=== PATIENT | female | born 1990 | race Caucasian/White ===

== ENCOUNTER → 2017-11-27 08:43 | Outpatient (CLI) | payer SELFPAY ==
[2017-11-27 11:02] LABS: Glucose GTT-Gestational 1 Hr 206 mg/dL (<190)
[2017-11-27 11:03] LABS: Glucose GTT-Gestation. Fasting 101 mg/dL (<105)
[2017-11-27 11:47] LABS: Glucose GTT-Gestational 2 Hr 178 mg/dL (<165)
[2017-11-27 13:35] LABS: Glucose GTT-Gestational 3 Hr 148 L (<145)
== END ==
PROVIDERS: Family Provider Family Medicine; PCP Family Medicine; Visit Provider Obstetrics & Gynecology
DX: O24.912 Unspecified diabetes mellitus in pregnancy, second trimester (principal); Z3A.00 Weeks of gestation of pregnancy not specified
CPT/HCPCS: 36415; 82951; 82952

== ENCOUNTER 2017-12-07 10:07 | Outpatient (RCR) | payer SELFPAY | END 2017-12-07 23:59 | LOC: DC 10:07 | PROVIDERS: Family Provider Family Medicine; PCP Family Medicine; Visit Provider Family Medicine | DX: O24.419 Gestational diabetes mellitus in pregnancy, unspecified control (principal); Z71.3 Dietary counseling and surveillance | CPT/HCPCS: G0108 ==

== ENCOUNTER → 2018-01-09 19:18 | Outpatient (CLI) | payer SELFPAY ==
[2018-01-09 21:00] LABS: Group B Strep DNA By PCR Negative (Negative); Internal Control PASS; Probe Check PASS; Specimen Processing Control PASS
== END ==
PROVIDERS: Visit Provider Obstetrics & Gynecology
DX: Z36.85 Encounter for antenatal screening for Streptococcus B (principal)
CPT/HCPCS: 87081; 87653

== ENCOUNTER 2018-01-16 19:00 | Inpatient (IN) | payer SELFPAY ==
[2018-01-16 19:40] VITALS: BMI 44.4
[2018-01-16] MEDS: Lactated Ringers 1,000 ML 50 ML IV (20:00)
[2018-01-16 20:20] LABS: Hematocrit 35.7 % (37-47); Hemoglobin 11.6 g/dl (12.0-15.0); Mean Corp Hgb Conc 32.5 g/gl (32-36); Mean Corpuscular Hgb 26.2 pg (27.0-32.0); Mean Corpuscular Volume 80.8 fL (81-99); Mean Platelet Vol. 9.4 fl (6.2-12.0); Platelet Count 302 K/mm3 (150-450); RBC Distribution Width CV 14.1 % (11.6-14.6); RBC Distribution Width SD 40.7 fl (35.1-43.9); Red Blood Count 4.42 M/mm3 (4.2-5.4); White Blood Count 13.9 K/mm3 (4.4-11.0)
[2018-01-16 20:24] LABS: Scan Indicated on CBC? Y/N NO
[2018-01-16] MEDS: miSOPROStol 25 MCG TABLET PO (20:54)
[2018-01-16 21:15] LABS: Bedside Glucose 116 mg/dL (70-110)
[2018-01-16 21:40] LABS: Bedside Glucose 118 mg/dL (70-110)
[2018-01-16 22:35] LABS: Bedside Glucose 106 mg/dL (70-110)
[2018-01-17] MEDS: miSOPROStol 25 MCG TABLET PO ×2 (00:56→05:01)
[2018-01-17 02:11] LABS: Bedside Glucose 120 mg/dL (70-110)
[2018-01-17 03:11] LABS: Bedside Glucose 112 mg/dL (70-110)
[2018-01-17 04:11] LABS: Bedside Glucose 117 mg/dL (70-110)
[2018-01-17 05:10] LABS: Bedside Glucose 114 mg/dL (70-110)
[2018-01-17 06:20] LABS: Bedside Glucose 108 mg/dL (70-110)
--- NOTE | 2018-01-17 07:47 | PCM.PN.BLA ---
Progress Note Induction of labor 37 3/7 wk diabetic.. Cytotec induction. Feeling some UCs but not very painful. Slept some overnight. AVSS sugars overnight 106 - 116. EFM: Category I tracing. 140s avg variability. with accels UCs noted approx q 3 mins CX: per RN just checked 4 cm A/P: 37 3/7 wk diabetic. Induction for oligo. Continue induction. Hold cytotec. Plan AROM and pitocin.
[2018-01-17] MEDS: Acetaminophen 325 MG Tablet PO (08:00)
[2018-01-17] MEDS: Oxytocin 30 units/NS 500 ml 30 UNITS/500 ML IV.SOLN IV (09:09)
[2018-01-17 10:10] LABS: Bedside Glucose 95 mg/dL (70-110)
[2018-01-17 14:21] LABS: Bedside Glucose 77 mg/dL (70-110)
[2018-01-17] MEDS: Nalbuphine 10 MG/ML Ampul IV (16:24)
[2018-01-17] MEDS: Lactated Ringers 1,000 ML 50 ML IV (16:25)
[2018-01-17] MEDS: Amnioinfusion- 0.9% NS 1,000 ML IV.SOLN. 1000 ML INTRA-UTER (18:20)
[2018-01-17] MEDS: Oxytocin 30 units/NS 500 ml 30 UNITS/500 ML IV.SOLN 334 UNITS IV (18:42)
[2018-01-17 18:51] LABS: Bedside Glucose 88 mg/dL (70-110)
--- NOTE | 2018-01-17 19:00 | PCM.OB.VAG ---
Vaginal Delivery Maternal Presentation: Medically Indicated Induction Method of Induction: Pitocin, Amniotomy, Cytotec Medical Reason for Induction: - - Severe Oligohydramnios Amniotic Membrane Rupture Type: Artificial Amniotic Fluid Description: Clear Final SAMANTHA: 02/05/18 Final SAMANTHA Source: US <20 weeks Gestational age: 37 Weeks and 2 Days Date of Procedure: 01/17/18 Pre-Operative Diagnosis: IUP, Severe Oligohydramnios, Gestational Diabetes Post-Operative Diagnosis: IUP, Severe Oligohydramnios, Gestational Diabetes Surgery/ Procedure Performed: Spontaneous Vaginal Delivery Type of Anesthesia: None Description of Procedure: Spontaneous vaginal delivery of a viable female infant with Apgars of 8/9 in occiput anterior presentation with clear amniotic fluid and normal three-vessel placenta. True knot in cord. Precipitously delivered after advancing quickly from 4 cm to complete. I entered the room moments after delivery. No episiotomy or laceration. Sponge counts okay. Delivery physician of record: Jerry Renee MD. Presentation: Vertex Placental Delivery Description: Spontaneous Placenta Disposition: [facility] Cord Vessel Description: 3 Vessels Cord Gases drawn per routine: ABG Cord Entanglement: None, True Knot(s) - x 1 Estimated Blood Loss: 250 cc Infant A gender: Female (1 minute): 8 (5 minute): 9 Episiotomy Description: None Laceration: None Medications given after delivery: IV Pitocin Complications: None
--- NOTE | 2018-01-17 19:08 | DCINST_ITS ---
Discharge Diet: No Restrictions Discharge Activity: May Shower, May Take a Tub Bath May resume sexual activity in: 4-6 weeks Additional Activity Instructions:: Nothing in the vagina for 4-6 weeks. You may return to work/school in 6 weeks. Call your doctor if you observe: Fever of 101 or Higher, Inability to urinate, Inability to have a bowel movement, Using more than one pad per hour Additional Instructions: If you experience any of the following, contact your healthcare provider. * Bleeding that soaks a pad every hour for 2 hours * Unrelieved incision or abdominal pain * Swelling, redness, discharge or bleeding from your incision or episiotomy site * Your incision begins to separate * Problems urinating (including inability to urinate or burning while urinating) . * Visual changes * Severe headache * Flu-like symptoms * Pain or redness in one of both of your breasts * Pain, warmth, tenderness or swelling in your legs, especially the calf area * Frequent nausea and vomiting * Symptoms of depression or anxiety If you experience any of the following, call 911 or go to the nearest Emergency Room. * Chest pain * Problems breathing * Seizure activity * Partial or complete paralysis of a body part, slurred speech, weakness or drooping of the face, or a sudden inability to walk or hold your balance Allergies/Adverse Reactions: Allergies No Known Allergies Allergy (Verified 01/16/18 19:38) Medications to take at Discharge Glyburide 1.25 mg PO DAILY 01/16/18 Please Follow Up With: Jerry Renee MD - [phone] When: Call to make an appointment with your doctor in 6 weeks. Test Results: Test results from this visit will be discussed in further detail at your follow- up appointment, if applicable.
--- NOTE | 2018-01-17 19:08 | PCM.DCVAG ---
Discharge Diet: No Restrictions Discharge Activity: May Shower, May Take a Tub Bath May resume sexual activity in: 4-6 weeks Additional Activity Instructions:: Nothing in the vagina for 4-6 weeks. You may return to work/school in 6 weeks. Call your doctor if you observe: Fever of 101 or Higher, Inability to urinate, Inability to have a bowel movement, Using more than one pad per hour Additional Instructions: If you experience any of the following, contact your healthcare provider. Bleeding that soaks a pad every hour for 2 hours Unrelieved incision or abdominal pain Swelling, redness, discharge or bleeding from your incision or episiotomy site Your incision begins to separate Problems urinating (including inability to urinate or burning while urinating). Visual changes Severe headache Flu-like symptoms Pain or redness in one of both of your breasts Pain, warmth, tenderness or swelling in your legs, especially the calf area Frequent nausea and vomiting Symptoms of depression or anxiety If you experience any of the following, call 911 or go to the nearest Emergency Room. Chest pain Problems breathing Seizure activity Partial or complete paralysis of a body part, slurred speech, weakness or drooping of the face, or a sudden inability to walk or hold your balance Allergies/Adverse Reactions: Allergies No Known Allergies Allergy (Verified 01/16/18 19:38) Medications to take at Discharge Glyburide 1.25 mg PO DAILY 01/16/18 Please Follow Up With: Jerry Renee MD - [phone] When: Call to make an appointment with your doctor in 6 weeks. Test Results: Test results from this visit will be discussed in further detail at your follow-up appointment, if applicable.
[2018-01-17] MEDS: Oxytocin 30 units/NS 500 ml 30 UNITS/500 ML IV.SOLN 167 UNITS IV (19:12)
[2018-01-17 19:26] LABS: Bedside Glucose 107 mg/dL (70-110)
[2018-01-17] MEDS: 0.9% Saline Lock 10 ML Syringe IV (20:12)
[2018-01-17 21:00] VITALS: BP 134/74; PULSE 95; RESP 18; TEMP 36.2
[2018-01-17 23:45] VITALS: BP 96/55; PULSE 80; RESP 18; TEMP 36.6
[2018-01-18 04:20] VITALS: BP 111/72; PULSE 83; RESP 18; TEMP 36.1
[2018-01-18 06:31] LABS: Bedside Glucose 95 mg/dL (70-110)
[2018-01-18 08:12] VITALS: BP 111/64; PULSE 99; RESP 18; TEMP 36.3; O2SAT 96
--- NOTE | 2018-01-18 09:29 | PCM.PN.OB ---
Subjective: Pt without complaints. Decided to bottle feed. Wants to go home if baby able to go. - Physical Exam Vital Signs Temp Pulse Resp BP Pulse Ox 97.3 F L 99 18 111/64 96 01/18/18 08:12 01/18/18 08:12 01/18/18 08:12 01/18/18 08:12 01/18/18 08:12 Oxygen Delivery Method Room Air Weight: 242 lb 9.6 oz Body Mass Index (BMI) 44.4 Intake and Output for Last 24 Hours 01/16/18 01/17/18 01/18/18 23:59 23:59 23:59 Intake Total 600 / 600 2647 / 2647 Output Total 500 / 500 3200 / 3200 Balance 100 / 100 -553 / -553 POC Glucose 01/18/18 01/17/18 01/17/18 05:57 19:18 18:22 POC Glucose 95 107 88 01/17/18 01/17/18 14:10 09:59 POC Glucose 77 95 Medical Necessity - Tobacco Use Smoking Status: Never smoker Assessment/Plan Doing well PPD 1. Will release to home if baby able to go. Homegoing instructions given.
[2018-01-18 12:10] VITALS: BP 115/69; PULSE 99; RESP 18; TEMP 36.2; O2SAT 99
--- NOTE | 2018-01-18 14:19 | CASEMGMT ---
ocial Work Assessment Labor and Delivery Unit Date of Referral: 01/18/2018 Time of Referral: 44 Referred By: Dr. Silva Date of Intervention: 01/18/2018 Time of Intervention: 1130 Reason for Referral: resources; depression education History obtained from: Medical record and mother of baby (MOB) Lili Coffman Household composition: MOB, father of baby (FOB) and their older children. Plan to take infant to this home as well as after discharge. Patient's parent/guardian status: MOB and FOB Rashid Coffman are now for 10 years. Have 4 children: Raj, born July 2009; Alonso born October 2010; Johnna, born April 2015; and Vero, born January 17, 2018. Medical History: BEATRIZ is to 4 after delivering Vero. MOB reports history of multiple losses, all first trimester. MOB with care starting at 15 weeks gestation. born at 37 weeks, weighing 7 pounds 13 ounces, Apgars 8 and 9 at 1 and 5 minutes of life. Educational Status: MOB completed through the 8th grade, as did FOB. MOB reports grew up [place], and 8th grade is the typical last grade of completion. MOB denies any issues with reading, writing, or learning comprehension. Financial Status: MOB stays at home to care for the children at this time. FOB is self-employed as a [employer]. MOB reports financial status is adequate. Supplies: MOB reports to have needed baby supplies to get started, such as car seat, crib, clothing, diapers, and wipes. MOB reports plan now to bottle feed, and will go to the store at discharge to get bottles and formula. Childcare/Caregiver(s): MOB Transportation: No reported issues, MOB drives and has access to a vehicle. Programs/Agencies Involved: No agency involvement, and no reported interest in Medicaid. MOB does not have insurance, and not interested in applying for Medicaid to supplement healthcare needs. MOB reports to be over income for [employer]. Children Services/Legal Issues: No reported history of any children services or legal issues. Behavioral Health Issues: MOB denies any history of depression, anxiety, or other emotional health issues including depression or anxiety. MOB reports has had problems with hormones in the past, but denies depression or anxiety. No reports or indication of any suicidal thoughts, plans, intent, or past attempt. MOB reports her own mother may have had some history of depression. MOB denies any history of substance use or abuse. No tobacco use either. Family/Social Stressors: No reported issues, concerns, or stressors reported. MOB does have history of multiple early loss. MOB does report that Vero was a happy surprise, as MOB had 2 miscarriages prior to conceiving Vero, and that MOB and FOB were both unsure if they could go through another loss again. Support Systems: MOB reports FOB is helpful and supportive when at home, denies any form of abuse in this relationship. MOB reports to have her sister and mother locally to help as well. MOB reports at home going, MOBs mother will continue to keep the older children for a few more days, giving MOB and FOB a few days to transition home with baby. ASSESSMENT: MOB polite and cooperative with social work visit. MOB affect constricted at times, but other times, when MOB looking at baby or talking about baby MOB would smile and exhibit a bright affect. MOB held normal eye contact. Mood normal and congruent to content discussed. MOB reports to have loving feelings for baby and to be happy. MOB denies depression. Denies anxiety. Educated MOB to depression and anxiety, risk factors, and importance of seeking out help and support should symptoms arise. MOB reports to be aware of safe sleeping, and able to give appropriate responses regarding shaken baby prevention. MOB reports to have adequate help and to have supplies at home for baby. MOB accepting of resources information offered, as well as resource packet for [facility] where MOB lives. PLAN: MOB and baby to home at time of discharge. Resources provided. No other services requested or indicated. -BAM Epstein, ELEMENTARY SECRETARY
[2018-01-18] MEDS: Ibuprofen 600 MG Tablet PO (14:33)
[2018-01-18] MEDS: oxyCODONE 5 MG Tablet PO (16:34)
[2018-01-18 16:40] VITALS: BP 118/73; PULSE 92; RESP 18; TEMP 36.3; O2SAT 94
[2018-01-18 19:36] VITALS: BP 120/63; PULSE 86; RESP 18; TEMP 36.6; O2SAT 96
== END 2018-01-18 20:45 | disposition home or self-care (01) | DRG 775 ==
PROVIDERS: Obstetrics & Gynecology; Admitting Provider Obstetrics & Gynecology; Visit Provider Obstetrics & Gynecology
DX: O41.03X0 Oligohydramnios, third trimester, not applicable or unspecified (principal); O24.425 Gestational diabetes mellitus in childbirth, controlled by oral hypoglycemic drugs; O62.3 Precipitate labor; O26.23 Pregnancy care for patient with recurrent pregnancy loss, third trimester; O69.2XX0 Labor and delivery complicated by other cord entanglement, with compression, not applicable or unspecified; Z3A.37 37 weeks gestation of pregnancy; Z37.0 Single live birth
CPT/HCPCS: 59025; 59050; 82962; 85027; 86850; 86900; 99218; J7030; J7120; A4216; G0378

== ENCOUNTER → 2020-02-20 13:36 | Outpatient (CLI) | payer SELFPAY ==
[2020-02-22 03:06] LABS: Chlamydia By Nucleic Acid AMP Negative (Negative)
[2020-02-22 08:22] LABS: Gonococcus By Nucleic Acid AMP Negative (Negative)
[2020-02-24 15:29] LABS: HPV Reflexed? NOT INDICATED
== END ==
PROVIDERS: Visit Provider Obstetrics & Gynecology
DX: Z12.4 Encounter for screening for malignant neoplasm of cervix (principal); Z11.3 Encounter for screening for infections with a predominantly sexual mode of transmission
CPT/HCPCS: 87491; 87591; 88175; G0145

== ENCOUNTER → 2020-02-21 15:17 | Outpatient (CLI) | payer SELFPAY ==
[2020-02-21 17:22] LABS: Absolute Lymphocyte Count 3.19 X10^3/uL (0.83-4.51); Basophil# 0.07 X10^3/uL; Basophil% 0.5 % (0-1); Eosinophil# 0.18 X10^3/uL; Eosinophils% 1.2 % (0-5); Hematocrit 40.6 % (37-47); Hemoglobin 13.4 g/dL (12.0-15.0); Lymphocyte # 3.19 X10^3/ul (4.0); Lymphocyte % 20.9 % (19-41); Mean Corpuscular Hgb 28.6 pg (27.0-32.0); Mean Corpuscular Volume 86.6 fL (81-99); Mean Platelet Vol. 9.2 fl (6.2-12.0); Monocyte# 0.79 X10^3/uL; Monocyte% 5.2 % (0-10); NRBC Flagged by Analyzer 0 % (0-5); Neutrophil # 10.98 X10^3/uL (2.7-7.7); Neutrophil % 71.7 % (47-70); Platelet Count 359 K/mm3 (150-450); RBC Distribution Width CV 13.2 % (11.6-14.6); RBC Distribution Width SD 41.1 fl (35.1-43.9); Red Blood Count 4.69 M/mm3 (4.2-5.4); White Blood Count 15.3 K/mm3 (4.4-11.0)
[2020-02-21 17:40] LABS: Color, Urine Yellow (Yellow); Glucose, Dipstick Normal (Normal); Ketone-Dipstick Negative (Negative); Leukocyte Esterase-Dipstick 500 /ul (Negative); Nitrite-Dipstick Negative (Negative); Occult Blood-Urine 250 /ul (Negative); Protein-Dipstick 15 mg/dl (Negative); Specific Gravity, Urine 1.025 (1.002-1.030); Urine Bilirubin Dipstick Negative (Negative); Urine Clarity Sl. Cloudy (Clear); Urine Urobilinogen Normal (Normal)
[2020-02-22 11:01] LABS: HIV - WCH Non-Reactive (Nonreactive); Hepatitis B Surface Antigen Non-Reactive (Nonreactive); Hepatitis C Antibody Non-Reactive (Nonreactive); Rubella IgG 110.8 IU/mL
[2020-02-27 02:15] LABS: Prenatal RPR NONREACTIVE (NONREACTIVE)
== END ==
PROVIDERS: Visit Provider Obstetrics & Gynecology
DX: Z34.81 Encounter for supervision of other normal pregnancy, first trimester (principal)
CPT/HCPCS: 36415; 81002; 85025; 86703; 86762; 86803; 87340

== ENCOUNTER → 2020-03-19 11:57 | Outpatient (CLI) | payer SELFPAY ==
[2020-03-19 13:05] LABS: Glucose Challenge Gest 1H 50g 125 mg/dL (70-140)
== END ==
PROVIDERS: Visit Provider Obstetrics & Gynecology
DX: Z34.82 Encounter for supervision of other normal pregnancy, second trimester (principal)
CPT/HCPCS: 36415; 82950

== ENCOUNTER → 2020-06-10 16:00 | Outpatient (CLI) | payer SELFPAY ==
[2020-06-10 17:23] LABS: Hematocrit 33.8 % (37-47); Hemoglobin 10.5 g/dL (12.0-15.0); Mean Corp Hgb Conc 31.1 g/dL (32-36); Mean Corpuscular Hgb 26.6 pg (27.0-32.0); Mean Corpuscular Volume 85.6 fL (81-99); Mean Platelet Vol. 9.4 fl (6.2-12.0); Platelet Count 334 K/mm3 (150-450); RBC Distribution Width CV 12.6 % (11.6-14.6); RBC Distribution Width SD 38.7 fl (35.1-43.9); Red Blood Count 3.95 M/mm3 (4.2-5.4); White Blood Count 11.3 K/mm3 (4.4-11.0)
[2020-06-10 17:28] LABS: Glucose Challenge Gest 1H 50g 171 mg/dL (70-140)
== END ==
PROVIDERS: Visit Provider Obstetrics & Gynecology
DX: Z34.83 Encounter for supervision of other normal pregnancy, third trimester (principal)
CPT/HCPCS: 36415; 82950; 85027

== ENCOUNTER 2020-07-22 09:33 | Outpatient (CLI) | payer SELFPAY ==
[2020-07-22 09:42] VITALS: BP 137/74; PULSE 106; TEMP 36.3
[2020-07-22 10:30] VITALS: BMI 45.8
--- NOTE | 2020-07-30 10:06 | OB.TRI.NOTE ---
History of Present Illness Date of Service: 07/22/20 Was patient seen by the physician?: No Reason For Visit: NON-STRESS TEST Date of Service: 07/22/20 Final SAMANTHA: 09/18/20 Final SAMANTHA Source: US <20 weeks Gestational age: 31 Weeks and 5 Days History of Present Illness: 31+ week intrauterine presents for routine nonstress test for twins. Allergies No Known Allergies Allergy (Verified 07/26/20 16:37) Physical Exam Vitals: Vital Signs Temp Pulse BP 97.3 F L 106 H 137/74 H 07/22/20 09:42 07/22/20 09:42 07/22/20 09:42 NST - FHR Rate Baby A NST Reactive:: Yes FHR Category:: Category I - FHR Rate Baby B NST Reactive:: Yes FHR Category:: Category I Impression/Plan 31+ week intrauterine twin gestation for routine nonstress test. Reactive x2. Continuing present care.
== END 2020-07-22 10:40 | disposition home or self-care (01) ==
LOC: WPOUT 09:34 → WP 09:34
PROVIDERS: Referring Provider Obstetrics & Gynecology; Visit Provider Obstetrics & Gynecology
DX: O30.003 Twin pregnancy, unspecified number of placenta and unspecified number of amniotic sacs, third trimester (principal); Z3A.31 31 weeks gestation of pregnancy
CPT/HCPCS: 59025

== ENCOUNTER 2020-07-26 16:10 | Outpatient (CLI) | payer SELFPAY ==
[2020-07-26 16:15] VITALS: BP 142/77; PULSE 108
[2020-07-26 16:19] VITALS: TEMP 36.5
[2020-07-26 16:37] VITALS: BMI 45.5
[2020-07-26 17:06] VITALS: BP 139/70; PULSE 97
--- NOTE | 2020-07-27 18:16 | PN_ITS ---
Progress Note NST [place] di twins at 32/2w, GDMA2 presenting for NST. NST REACTIVE. Discharged home for follow up on Monday in office.
== END 2020-07-26 17:20 | disposition home or self-care (01) ==
LOC: WPOUT 16:14 → WP 16:15
PROVIDERS: Visit Provider Student in an Organized Health Care Education/Training Program
DX: O30.033 Twin pregnancy, monochorionic/diamniotic, third trimester (principal); O24.419 Gestational diabetes mellitus in pregnancy, unspecified control; Z3A.32 32 weeks gestation of pregnancy
CPT/HCPCS: 59025

== ENCOUNTER 2020-08-02 14:45 | Outpatient (CLI) | payer SELFPAY ==
[2020-08-02 14:58] VITALS: BP 134/70; PULSE 88; TEMP 36.8; O2SAT 97
[2020-08-02 14:59] VITALS: BP 134/70; PULSE 88
--- NOTE | 2020-08-06 07:19 | OB.TRI.NOTE ---
History of Present Illness Date of Service: 08/02/20 Was patient seen by the physician?: No Reason For Visit: NST TWINS Final SAMANTHA: 09/18/20 Final SAMANTHA Source: US <20 weeks Gestational age: 33 Weeks and 2 Days History of Present Illness: 30yo at 33 2/7 wga with MCDA twin gestation presenting for scheduled NST. Allergies No Known Allergies Allergy (Verified 08/02/20 15:09) Physical Exam Vitals: Vital Signs Temp Pulse BP Pulse Ox 98.2 F 88 134/70 H 97 08/02/20 14:58 08/02/20 14:59 08/02/20 14:59 08/02/20 14:58 NST - FHR Rate Baby A Baseline: 125 Variability:: Moderate Accelerations:: 15 x 15 Decelerations:: None NST Reactive:: Yes FHR Category:: Category I Uterine Activity:: 0/10 - FHR Rate Baby B Baseline: 130 Variability:: Moderate Accelerations:: 15 x 15 Decelerations:: None NST Reactive:: Yes FHR Category:: Category I Uterine Activity:: 0/10
== END 2020-08-02 15:40 | disposition home or self-care (01) ==
LOC: WPOUT 14:49 → OBT 14:50
PROVIDERS: Referring Provider Obstetrics & Gynecology; Visit Provider Obstetrics & Gynecology
DX: O30.033 Twin pregnancy, monochorionic/diamniotic, third trimester (principal); Z3A.33 33 weeks gestation of pregnancy
CPT/HCPCS: 59025; 59050; 99218; G0378

== ENCOUNTER 2020-08-09 17:05 | Outpatient (CLI) | payer SELFPAY ==
[2020-08-09 17:13] VITALS: BP 143/65; PULSE 98; TEMP 36.6; O2SAT 99
--- NOTE | 2020-08-14 17:01 | PCM.PN.BLA ---
Progress Note Twins for NST, inability to continuously trace babies. +Normal movement. Monitoring reassuring, f/u Thursday 08/10 for BPP in office. Discussed personally with patient.
== END 2020-08-09 18:05 | disposition home or self-care (01) ==
LOC: WPOUT 17:21 → WP 17:21
PROVIDERS: Referring Provider Student in an Organized Health Care Education/Training Program; Visit Provider Student in an Organized Health Care Education/Training Program
DX: O30.009 Twin pregnancy, unspecified number of placenta and unspecified number of amniotic sacs, unspecified trimester (principal); Z3A.00 Weeks of gestation of pregnancy not specified
CPT/HCPCS: 59025; 59050; 99218; G0378

== ENCOUNTER → 2020-08-13 17:06 | Outpatient (CLI) | payer SELFPAY ==
[2020-07-26 16:37] VITALS: BMI 45.5
[2020-08-13 17:18] LABS: Mucous, Urine 0 SEEN /hpf (<or=2+); Red Blood Cells-Urine 0 SEEN /hpf (0-5)
[2020-08-13 17:35] LABS: Absolute Lymphocyte Count 2.12 X10^3/uL (0.83-4.51); Absolute Neutrophil Count 6.6 X10^3/uL (2.0-7.7); Basophil# 0.03 X10^3/uL; Basophil% 0.3 % (0-1); Eosinophil# 0.39 X10^3/uL; Hematocrit 30.4 % (37-47); Lymphocyte # 2.12 X10^3/ul (4.0); Lymphocyte % 21.7 % (19-41); Mean Corp Hgb Conc 29.6 g/dL (32-36); Mean Corpuscular Volume 74.3 fL (81-99); Mean Platelet Vol. 9.5 fl (6.2-12.0); Monocyte% 6.1 % (0-10); NRBC Flagged by Analyzer 0.7 % (0-5); Neutrophil # 6.56 X10^3/uL (2.7-7.7); Platelet Count 297 K/mm3 (150-450); RBC Distribution Width CV 15.6 % (11.6-14.6); RBC Distribution Width SD 42.1 fl (35.1-43.9); Red Blood Count 4.09 M/mm3 (4.2-5.4); White Blood Count 9.8 K/mm3 (4.4-11.0)
[2020-08-13 17:39] LABS: Color, Urine Yellow (Yellow); Glucose, Dipstick Normal (Normal); Ketone-Dipstick Negative (Negative); Leukocyte Esterase-Dipstick 100 /ul (Negative); Nitrite-Dipstick Negative (Negative); Occult Blood-Urine 25 /ul (Negative); Protein-Dipstick 30 mg/dl (Negative); Specific Gravity, Urine 1.005 (1.002-1.030); Urine Bilirubin Dipstick Negative (Negative); Urine Clarity Clear (Clear); Urine Urobilinogen Normal (Normal)
[2020-08-13 17:44] LABS: Squamous Epithelial Cells - UA 0-5 SEEN /hpf (5-10); White Blood Cells 0-5 SEEN /hpf (0-5)
[2020-08-13 17:45] LABS: Bacteria RARE /hpf (None Seen)
[2020-08-13 17:48] LABS: Protein, Urine (Random) 58.6 mg/dL (<11.9); Protein:Creat Ratio 1149 mg/g CRE (0-200)
[2020-08-13 18:30] LABS: ALB/GLOB Ratio 0.5 RATIO (0.9-2.4); AST(SGOT) 23 U/L (15-37); Alanine Aminotransfer ALT/SGPT 34 U/L (13-56); Albumin, Serum 2.3 g/dL (3.2-5.0); Alkaline Phosphatase 161 U/L (45-117); Anion Gap 7 (5-15); BUN 7 mg/dL (7-18); BUN/Creat Ratio 11.7 RATIO (10-20); Calcium,Total 9.3 mg/dL (8.5-10.1); Chloride 106 mmol/L (98-107); EST Glomerular Filtration Rate 124 mL/min (>60); Est Glom Filt Rate - Afr Amer 150 mL/min (>60); Globulin 4.3 g/dL (2.2-4.2); Glucose 69 mg/dL (74-106); LDH 204 U/L (84-246); Protein, Total 6.6 g/dL (6.4-8.2); Sodium Level 138 mmol/L (136-145)
== END ==
PROVIDERS: Visit Provider Obstetrics & Gynecology
DX: R51.9 Headache, unspecified (principal)
CPT/HCPCS: 36415; 80053; 81001; 82570; 83615; 84156; 85025

== ENCOUNTER 2020-08-14 16:15 | Outpatient (CLI) | payer SELFPAY ==
[2020-08-14 16:35] VITALS: BMI 46.4
[2020-08-14 16:39] VITALS: BP 132/62; PULSE 98; TEMP 36.7; O2SAT 99
[2020-08-14 16:40] VITALS: BP 132/62; PULSE 97; TEMP 36.7
[2020-08-14] MEDS: Betamethasone/Betamethasone 30 MG/5 ML Vial 12 MG IM (17:00)
--- NOTE | 2020-08-15 09:32 | OB.TRI.NOTE ---
History of Present Illness Date of Service: 08/14/20 Was patient seen by the physician?: No Reason For Visit: CELESTONE INJECTION Date of Service: 08/14/20 Final SAMANTHA: 09/18/20 Final SAMANTHA Source: LMP Gestational age: 35 Weeks and 1 Days History of Present Illness: 30-year-old with mono di twins here for first dose of Celestone Allergies No Known Allergies Allergy (Verified 08/14/20 16:36) Physical Exam Vitals: Vital Signs Temp Pulse BP Pulse Ox 98.1 F 97 132/62 H 99 08/14/20 16:40 08/14/20 16:40 08/14/20 16:40 08/14/20 16:39 Impression/Plan 30-year-old with mono di twins at 35 weeks for first dose of Celestone
[2020-08-15 17:37] LABS: 24HR. UA Prot. Total Volume 1300 mL
[2020-08-15 17:38] LABS: 24 Hour Urine Protein 1738.1 mg/24HR (<150 MG/24HR); Urine Protein (24 Hour) 133.7 mg/dL (<11.9)
== END 2020-08-14 17:05 | disposition home or self-care (01) ==
LOC: WPOUT 16:19 → WP 16:19
PROVIDERS: Referring Provider Obstetrics & Gynecology; Visit Provider Obstetrics & Gynecology
DX: O30.033 Twin pregnancy, monochorionic/diamniotic, third trimester (principal); Z3A.35 35 weeks gestation of pregnancy
CPT/HCPCS: 84156; 96372; 99218; G0378; J0702

== ENCOUNTER 2020-08-15 16:47 | Outpatient (CLI) | payer SELFPAY ==
[2020-08-14 16:35] VITALS: BMI 46.4
[2020-08-15 17:34] VITALS: BMI 46.7
[2020-08-15 17:40] VITALS: BP 136/83; PULSE 97; TEMP 36.7; O2SAT 96
[2020-08-15] MEDS: Betamethasone/Betamethasone 30 MG/5 ML Vial 12 MG IM (17:52)
[2020-08-15 18:05] VITALS: RESP 18
--- NOTE | 2020-08-16 10:55 | OB.TRI.NOTE ---
History of Present Illness Date of Service: 08/15/20 Was patient seen by the physician?: No Reason For Visit: CELESTONE INJECTIONS Date of Service: 08/15/20 Final SMAANTHA: 09/18/20 Final SAMANTHA Source: LMP Gestational age: 35 Weeks and 2 Days History of Present Illness: 30-year-old at 35 weeks and 1 day with mono ditwins here for second dose of Celestone and 24-hour urine collection Allergies No Known Allergies Allergy (Verified 08/15/20 17:31) Physical Exam Vitals: Vital Signs Temp Pulse Resp BP Pulse Ox 98.1 F 97 18 136/83 H 96 08/15/20 17:40 08/15/20 17:40 08/15/20 18:05 08/15/20 17:40 08/15/20 17:40 Impression/Plan 30-year-old with mono di twins at 35 weeks and 1 day here for second dose of Celestone and 24-hour urine collection. Reviewed 24-hour urine collection, to follow-up in office on Monday
== END 2020-08-15 18:05 | disposition home or self-care (01) ==
LOC: WPOUT 16:49 → OBT 16:50
PROVIDERS: Visit Provider Obstetrics & Gynecology
DX: O30.033 Twin pregnancy, monochorionic/diamniotic, third trimester (principal); Z3A.35 35 weeks gestation of pregnancy
CPT/HCPCS: 96372; 99218; G0378; J0702

== ENCOUNTER 2020-08-18 05:00 | Inpatient (IN) | payer SELFPAY ==
--- NOTE | 2020-08-17 13:53 | PCM.HP.BLA ---
History and Physical Date of Admission: 08/18/20 ACOG ANTEPARTUM RECORD - HISTORY AND PHYSICAL (08/17/2020) Name: LILI BOOTH History of this : This is a 30 year old [id number] with twin gestation who presents at 35 wks + 3 days gestation. PNC has been remarkable for twin gestation with mono-DI placentation. She also has gestational DM controlled with low dose glyburide. Finally, she has recently had occasional elevated BPs and recent 24 hour urine showed proteinuria of about 1700 mg/24 hours. She also has gestational HTN controlled until recently with Labetalol. She was given 2 doses of celestone late last week in anticipation of delivery this week. Babies are Breech-Breech so delivery planned by . OB Physician: Jerry Renee MD Harper's Physician: PED GREENHOUSE FLORIST ...................................................................... : 1990 Age: 30 Address: [address] [place] [address] Phone: [phone]) [phone] Insurance Carrier: Emergency Contact: LUTHER BOOTH- [phone] ...................................................................... Final SAMANTHA: 09/18/20 By Ultrasound: PARITY:G*[id number] (G-Total Pregnancies P-Fullterm,Premature,Induced AB,Spont AB, Ectopics, Multiple,Living) SAMANTHA CONFIRMATION: By LMP: 12/13/19 Final SAMANTHA: 09/18/20 OB PROBLEM LIST: 7 early 1st trimester SAB's APLS ordred by MFM AFP/CF testing declined NT wnl w/ MFM. Declined further genetic screening Elevated 1 hour PG --declines 3 hour GTT. Following blood sugars--Glyburide started 28 weeks for elevated FBSs gHTN - Labetalol History of GDMA Lives 1 hr from [place] MonoDi Twins --MFM recos q 2 week BRITTANY starting 16 weeks, growth q 4 weeks, anatomy survey 18-20 weeks, cardiac echo 20-22 weeks, NST 2x/week starting 32 weeks, delivery about 37 weeks gestation Prefers not to have an epidural ALLERGIES: No Known Allergies No Known Drug Allergies MEDICATIONS: aspirin 81 mg tablet,delayed release 1 PO QD glyburide 1.25 mg tablet Two pills by mouth once a day with dinner labetalol 100 mg tablet One pill by mouth twice a day 28 mg iron-800 mcg tablet One pill by mouth once a day Zofran 8 mg tablet One pill by mouth four times a day prn nausea SOCIAL HISTORY: Smoking - Never Alcohol Use - None Diet - no special diet Lifestyle - moderate stress lifestyle and Exercise - active work Employer - [employer] Job Description - Illicit Drug Use - None Sexual Activity - Residence - lives with Place of - [place], [place] Spouse-Sig Other Name - Luther Booth Spouse-Sig Other Occupation - Self Employed [employer] Spouse-Sig Other Phone No - [phone] Children Name(s) - Alonso Anthony, Johnna, Vero(18) PRIOR DELIVERY HISTORY DEL DATE GEST LAB WT LB WT OZ TYPE ANES LABOR TX Oct 17 6 0 0 0 Sab None No Feb 14 6 0 0 0 Sab None No Feb 19 7 0 0 0 Sab None No Jul 18 6 0 0 0 Sab None No Apr 08 6 0 0 0 Sab None No Mar 26 6 0 0 0 Sab None No Oct 11 40 12 9 14 Vag Epidural No Jul 19 40 12 8 0 Vacuu Local No Jan 24 37 12 7 12 Vag None No Apr 23 40 12 10 4 Vag None No ANTEPARTUM FLOW CHART VISIT GE RTC FU F F AR U U DATE WK MD WKS HT PN HR M SS BP ED WT AR GL D EF ST __ ____ ___ __ __ ___ __ __ __ ___ __ __ __ ___ __ 04 Aug JM 2 34 BB on + 138/92 sl 256 1+ - 01 Aug JM 2 34 BB on ++ 130/82 1+ 253 tr - Jul SHM 1 41 BB ++ ++ 118/76 sl 249 1+ - Jul JMW 1 41 BB ++ + 148/90 sl 248 tr ne Aug 09 JMW 1 43 BB ++ ++ 144/88 sl 250 tr - Aug 08 JMW 1 35 BT ++ ++ 110/84 sl 250 tr - Jul 07 JM 2 29 - on ++ 122/80 sl 248 tr - Jul 06 JMW 2 34 ++ ++ 128/86 0 246 - - Jul 05 JMW 1 30 TT ++ ++ 124/82 0 245 tr - 02 Jul 03 JMW 2 31 VT ++ ++ 138/82 0 249 - 1+ Jun 01 SHM 2 26 BT ++ ++ 126/72 0 245 - - Apr 26 JMW 5 22 BC ++ ++ 120/80 0 239 tr - 10 Mar 22 JM 4 13 - on US 120/70 0 233 tr tr Feb 16 JM 4 10 - + US 124/80 0 233 - - ANTEPARTUM NOTE(S): Aug 13 2020: Decreased FM Aug 10 2020: u/s and f/u with JM Aug 05 2020: Feeling Well, Good FM x 2 Jul 29 2020: BPP /8 x 2; inc labetalol to 200 BID; NST Monday; BS OK Jul 22 2020: Blood Sugars Copied, Good FM x 2,NST at [facility] reactive Jul 16 2020: BPP 8/8; BSs better Jul 07 2020: see note Jul 01 2020: inc glyburide to 2.5 daily, u/s ok Jun 25 2020: US, FBS high, start glyburide Jun 10 2020: CBC, OGCT Today, Good FM x 2,Feeling Well May 27 2020: Apr 22 2020: feeling well., seeing MFM for AFIs Mar 19 2020: feeling well. Early glucola done today. AM Feb 21 2020: COMPREHENSIVE ANTEPARTUM NOTE(S): Aug 13 2020: Lili is here for a PNV. Decreased FM since Monday, has only felt babies approximately 3 times today. Sl edema in ankles. Elevated BP, 1+ protein in urine. Reports headaches, denies vision changes and lightheadedness. Some ctx's present. Informed of GBS and LARC at 36 wk appt. MK Aug 13 2020: 34wk, MonoDi twins. [place] decreased movement the past few days BPP today 02/14. Discussed movements. GDMA based on failed 1hr GTT did not do 3hr, prophylactically started on Glyburide 5mg, OTBS Fasting 80-90 2hr GTT 110. cHTN on Lebatelol 200mg BID, BP's stable but with headache that comes and goes. For HELLP labs today. Babies Breech/Breech. For c/s at 37wk 08/28/[address] Renee. For twice weekly BPP's monday and monday. DAVID Aug 10 2020: 34wk, MonoDi twins. Pt with NST in hospital. Today with follow up BPP, 02/14. Previous growth u/s listed below, AGA overal 17% discordance. will continue with twice weekly BPP's, next BPP later this week. GDMA based on failed 1hr GTT did no start 3hr GTT, prophylactically started on Glyburide 5mg, will bring sugars to next visit. cHTN started on Lebatolol for elevated BP's in , Labetalol 200mg BID. Currently delivery plan 37wk c/s, scheduled for 08/28/[address] Renee. JM Aug 05 2020: Lili is here for PNV with blood sugars copied and reports feeling well. JESUS Aug 05 2020: Had elevated blood sugars 4-5 days ago, but was not feeling well. Since then all at target. Will continue glyburide at 2.5mg qhs. Taking Labetalol 200mg bid with improved BP control. No sx preeclampsia. BPP 02/14 x 2 today with EFW A 2046g (4lb8oz - 19th%) and MVP A 8.4cm, EFW B 2457g (5lb7oz - 67.7th%) and MVP B 5cm, 17% discordance. Suspect polyhydramnios 2/2 previous hyperglycemia, resolving, no clear indication of TTTS. NST this weekend at [facility] and rpt BPP next week. Labor precautions reviewed. Schedule for C/S at 37wga given persistent A breech. Jul 29 2020: Lili is here for PNV following US. BS recorded and will be scanned. BP 148/90. No c/o headache or blurred vision at this time. Started Labetalol yesterday for 1 dose. Took 1 dose this am. Having good FM. Slight swelling noted today. Urine dipped tr and neg. Jul 22 2020: Repeat BP 140/86 (L) arm laying on (L) side. Denies headache or blurry vision at this time. JESUS Jul 07 2020: States having increased issues with sleep the last couple of nights. Asking about Melatonin? Advised could try Benadryl or Unisom. Decided to skip the the 3 hr GTT and do blood sugars but did not bring those with her today. Advised need to bring these for MD review at next visit. LMT Jul 07 2020: 29wk, MonoDi Twins. BPP today 02/14. Currnetly with u/s qwk and growth q4wks. Consider twice weekly BPP's and q4wk growths starting at 32wks. Pt with failed 1hr GTT and declines 3hr GTT. Pt prophylactically started on Glyburide 2.5mg qHs. Did not bring blood sugars but states fasting 120 2hr PP 120. Suggested starting Insulin, pt declines, r/b/a given. Pt agreeable to increase in Glyburide 2.5mg BID. Delivery 34-37wks, desires vaginal delivery. Jul 01 2020: Lili is here for a PNV. Good FM. No edema present. No concerns expressed at this time. Blood sugars obtained. MK Jun 25 2020: Lili is here for a PNV. Good FM. No edema. No concerns expressed at this time. May 27 2020: Lili is here for PNV 23 W 5 d. ++ FM. States that she is feeling well. No edema present today. Medications and allergies reviewed today. States that she went to [facility] . Reports lack of communication from [facility] and would like to continue all of her visits with us unless there is a problem then she will go back to [facility]. No other concerns or complaints expressed today. LJW May 27 2020: [place]-di twin gestation. MVPs wnl today. Will attempt to obtain MFM reports from recent US as not yet received. Pt expressed concern about lack of communication from [facility] with her as well as our office. She reports her anatomy scan was $5000! She asks about the necessity of continuing monitoring with [facility]. We reviewed indications for ECHO and risk for undetected FHR abnormality causing delay in care and need for transport. Pt considering not proceeding with ECHO at this time. Following discussion, will plan for additional monitoring here. Discussed labor analgesia. Is considering epidural. Mar 19 2020: 13wk/6d with FINAL SAMANTHA: 09/19/19 by LMP c/w 10wk u/s. PNP wnl. O pos. S/p MFM consult, confirmed MonoDi twins and gestational age, suggested TTTS screening 16wk q2wk BRITTANY q4wk Growth, Anatomy U/s at 18-20 wks, echo at 20-22wks, x2/wk at 32wks, all scheduled with MFM. Offered pt to do u/s here, can do all but echo, pt undecided. Because of MFM following with frequent u/s will expand visits beyond standards for MonoDi twins, 4 week follow up and follow via MFM records. For DELIVERY AT 37wk per MFM. Hx of GDMA1, early 1 hr GTT today some nausea with drink. Hx of recurrent loss, APLS ordered by [facility], currently on vaginal progesterone. DAVID Feb 27 2020: TELEHEALTH NOB VISIT. Lili is a 29 year old A7 with an SAMANTHA of 09/18/2020, current GA 10 w 6 d - [place]/DI twin gestation. She states that she is getting used to the idea that I'm having twins. She verbalizes that she is becoming more excited. Lili resides with her , Luther, and their 4 daughters. Past history updated, her labor with her youngest child was induced at 37 weeks for severe Oligohydramnios, she also had GDM. She has had 7 early first trimester losses, the last of which was in August of 2009 at approximately 7 w GA, she did not need a D+C. (no space to enter this on Past History). Lili would like to deliver at [facility], but knows that she may have to deliver at a higher level facility, she prefers not to have an epidural, and she will formula feed. labs were drawn last week. 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 Emergencies/danger signs, how to contact the office during/after hours, reporting a suspected UTI, round ligament pain, and common OTC medications for minor ailments that are approved/not approved for use during reviewed. Lili states that she is having nausea, and some vomiting, but that the Zofran she is taking is helpful. Encouarged small frequent meals with protein included throughout the day, carb rich food when nauseated, and adequate water hydration of at least one gallon per 24 hours. She is a life long non-smoker, and denies use of drugs or ETOH. AFP/CF testing declined (too late for AFP). She denies history of depression/anxiety. Lili has been taking an OTC vitamin that contains DHA, and states that she tolerates this well. Lili states she tries to walk several times a week. Lifting restrictions for discussed. water/dietary/caloric needs for , along with recommended weight gain for twin gestation, limiting empty calories, limiting caffeine to one cup a day, and food safety during . Lili states that she understands all information provided during 35 minute telephone NOB visit, and that she has no questions following same. AW New Feb 21 2020: Lili is here for her PNV. She is excited and still trying to comprehend that she is having twins. US done today. No edema. Medications and allergies reviewed today. NOB packet given and concent's signed. labs to be drawn today. AFP/CF testing declined. No other questions or concerns expressed today. LJW Feb 21 2020: U/s reveals MonoDi twins at 10wks. Discussed risks with pt including early delivery, NICU stay and possible delivery at level III facility. Also discussed the need for u/s screening and TTS. ASA Rx sent. PNP ordered. MFM consult placed for confirmatory u/s and TTS screening eval. JM Feb 20 2020: Lili presents here today for Missed Menses appointment. 29 y.o. G 12 P 4 AB 7 non-smoker with regular menses and LMP of 20 lasting her average of 5-6 days. UPT is positive today in our Office. Denies spotting/bleeding thus far in . Presents here at 9 weeks 6 days with an approximate SAMANTHA of 09-18-20. History of GDM and was controlled with diet(only with last ). Plans at [facility]. Currently taking Prometrium 200 mg every hs due to history of Missed AB's x 7. Taking OTC Vitamin daily. Educational Materials given. History of normal pap screening in 2018. Medication and Allergy lists up-dated. Requesting an RX for nausea and we briefly discussed Zofran and Promethazine and side effects of each, she would like to try the Zofran if JW agreeable. JESUS Feb 20 2020: ok REVIEW OF SYSTEMS: GENERAL - Denies fever, or chills SKIN - Denies rash, new skin lesions, or change in moles EYES - Denies blurred vision, or change in visual acuity EARS - Denies ear pain, or difficulty hearing NOSE - Denies nasal congestion, discharge, or bleeding MOUTH - Denies sore throat, or difficulty swallowing NECK - Denies pain or swelling RESPIRATORY - Denies shortness of breath, cough, wheezing CARDIOVASCULAR - Denies palpitations, chest pain, orthopnea, PND, peripheral edema, syncope or claudication GASTROINTESTINAL - Denies nausea, vomiting, diarrhea, constipation, Denies abdominal pain, melena and or bright red blood GENITOURINARY - Denies dysuria, frequency of urination, urgency, or hesitancy MUSCULOSKELETAL - Denies joint or muscle pain, or back pain NEUROLOGICAL - Denies localized numbness, weakness, or tingling PSYCHIATRIC - Denies depression, anxiety, substance abuse or suicide attempts ENDOCRINE - Denies heat or cold intolerance, weight loss or gain, increasing thirst HEMATO-IMMUNOLOGIC - Denies easy bruising, bleeding, oral ulcerations or recurrent infections GENETICS SCREENING: Age 35+ years: No Thalassemia: No Neural Tube Defect: No Down Syndrome: No SERINA-SACHS: No Sickle Cell Disease: No Hemophilia: No Musc. Dystrophy: No Cystic Fibrosis: No-declines screening [place] Chorea: No Mental Retardation: No Fragile X: No Other genetic: No Other defects: No SABs/still births: Yes, x7 Drugs since LMP: No INFECTION HISTORY: High risk AIDS: No High risk Hepatitis: No Exposed to TB: No Exposed to Herpes: No Rash/viral illness since LMP: No History of STD: No MENSTRUAL HISTORY: *Menses Amount/Duration: 5-6 DAYSMenses Regularity: RegularFrequency: monthlyMenarche (Age Onset): 10* PAST SUMMARY: PARITY: 1. Total Pregnancies............ 12 2. Full Term Pregnancies........ 4 3. Premature.................... 0 4. Abortions - Induced.......... 0 5. Abortions - Spontaneous...... 7 6. Ectopics..................... 0 7. Multiple Births.............. 0 8. Living Children.............. 4 PAST #1: Date of :.................. 04/09/08 Gestation Weeks:................ 6 Length of labor(hours):......... 0 Sex:............................ Weight-lbs:............... 0 Weight-oz:................ 0 Type of Delivery:............... Sab Type of Anesthesia:............. None Place of Delivery:.............. none Treatment of Labor?:.... No Comment: DATE APPROX PAST #2: Date of :.................. 07/10/08 Gestation Weeks:................ 6 Length of labor(hours):......... 0 Sex:............................ Weight-lbs:............... 0 Weight-oz:................ 0 Type of Delivery:............... Sab Type of Anesthesia:............. None Place of Delivery:.............. none Treatment of Labor?:.... No Comment: DATE APPROX PAST #3: Date of :.................. 07/19/09 Gestation Weeks:................ 40 Length of labor(hours):......... 12 Sex:............................ F Weight-lbs:............... 8 Weight-oz:................ 0 Type of Delivery:............... Vacuum Type of Anesthesia:............. Local Place of Delivery:.............. [facility] Treatment of Labor?:.... No Comment: INDUCED - PIH PAST #4: Date of :.................. 10/13/10 Gestation Weeks:................ 40 Length of labor(hours):......... 12 Sex:............................ M Weight-lbs:............... 9 Weight-oz:................ 14 Type of Delivery:............... Vag Type of Anesthesia:............. Epidural Place of Delivery:.............. [facility] Treatment of Labor?:.... No Comment: INDUCED - PIH PAST #5: Date of :.................. 02/07/14 Gestation Weeks:................ 6 Length of labor(hours):......... 0 Sex:............................ Weight-lbs:............... 0 Weight-oz:................ 0 Type of Delivery:............... Sab Type of Anesthesia:............. None Place of Delivery:.............. none Treatment of Labor?:.... No Comment: DATE APPROX PAST #6: Date of :.................. 04/23/15 Gestation Weeks:................ 40 Length of labor(hours):......... 12 Sex:............................ F Weight-lbs:............... 10 Weight-oz:................ 4 Type of Delivery:............... Vag Type of Anesthesia:............. None Place of Delivery:.............. [facility] Treatment of Labor?:.... No Comment: INDUCED-DEC BRITTANY, MACROSOMIA PAST #7: Date of :.................. 10/08/16 Gestation Weeks:................ 6 Length of labor(hours):......... 0 Sex:............................ Weight-lbs:............... 0 Weight-oz:................ 0 Type of Delivery:............... Sab Type of Anesthesia:............. None Place of Delivery:.............. none Treatment of Labor?:.... No Comment: DATE APPROX PAST #8: Date of :.................. 03/10/17 Gestation Weeks:................ 6 Length of labor(hours):......... 0 Sex:............................ Weight-lbs:............... 0 Weight-oz:................ 0 Type of Delivery:............... Sab Type of Anesthesia:............. None Place of Delivery:.............. none Treatment of Labor?:.... No Comment: DATE APPROX PAST #9: Date of :.................. 01/17/18 Gestation Weeks:................ 37 Length of labor(hours):......... 12 Sex:............................ F Weight-lbs:............... 7 Weight-oz:................ 12 Type of Delivery:............... Vag Type of Anesthesia:............. None Place of Delivery:.............. [place] Treatment of Labor?:.... No Comment: SEVERE OLIGO, IOL PAST #10: Date of :.................. 02/07/19 Gestation Weeks:................ 7 Length of labor(hours):......... 0 Sex:............................ Weight-lbs:............... 0 Weight-oz:................ 0 Type of Delivery:............... Sab Type of Anesthesia:............. None Place of Delivery:.............. none Treatment of Labor?:.... No Comment: DATE APPROX PHYSICAL EXAMINATION General Appearence: 30 yo female in no acute distress Vital Signs: AF, VSS Heart: RRR without rubs or gallops Lungs: CTA x 2 Breasts: deferred Abdomen: gravid Pelvis: Cervix: not examined Presentation: cephalic Station: not examined Fetus: Size: AGA Movement: present Heart: present LAB TEST(S) ORDERED SINCE:12/23/19 06/10/2020 GLUCOSE CHALLENGE GEST 1H 50G 06/10/2020 CBC-COMPLETE BLOOD CNT NO DIFF 03/19/2020 GLUCOSE CHALLENGE GEST 1H 50G 02/27/2020 Initial OB Labs 02/24/2020 PAP IG W/REFLEX HR HPV APTIMA 02/22/2020 CHLAMYDIA/GC LIBAN APTIMA 08/15/2020 PROTEIN, URINE 24HR 08/13/2020 URINALYSIS, COMPLETE 08/13/2020 PROTEIN+CREATININE RATIO,URINE 08/13/2020 LDH 08/13/2020 COMPREHENSIVE METABOLIC PROFIL 08/13/2020 CBC W/DIFF, AUTOMATED == ==== Order Observation Description Value Ref_Range A* Site == ==== PROTEIN, URINE NOTE POLO PROTEIN, URINE UR COLLECT TIME 24.0 HOURS 24.0 ML PROTEIN, URINE UR TOTAL VOLUME 1300 mL ML PROTEIN, URINE URINE PROTEIN 133.7 mg/dL <11.9 H ML PROTEIN, URINE 24HR UR PROTEIN 1738.1 mg/24HR <150 MG/24HR H ML LDH NOTE POLO LDH LDH 204 U/L 84-246 ML COMPREHENSIVE M NOTE POOL COMPREHENSIVE M GLU 69 mg/dL 74-106 L ML Please note revised GLUCOSE reference range effective 08/11/2017. COMPREHENSIVE M BUN 7 mg/dL 7-18 ML COMPREHENSIVE M CREAT,SERUM 0.60 mg/dL 0.55-1.02 ML The validity of the calculated GFR GFRAA in patients over 70 years has not been determined. Clinical correlation is essential. COMPREHENSIVE M EST GFR 124 mL/min >60 ML Non- GFR Calc COMPREHENSIVE M EST GFR - AA 150 mL/min >60 ML GFR Calc COMPREHENSIVE M BUN/CRE 11.7 RATIO 10-20 ML COMPREHENSIVE M T PROT 6.6 g/dL 6.4-8.2 ML COMPREHENSIVE M ALB 2.3 g/dL 3.2-5.0 L ML COMPREHENSIVE M GLOB 4.3 g/dL 2.2-4.2 H ML COMPREHENSIVE M A/G 0.5 RATIO 0.9-2.4 L ML COMPREHENSIVE M CA,TOTAL 9.3 mg/dL 8.5-10.1 ML COMPREHENSIVE M AST 23 U/L 15-37 ML COMPREHENSIVE M ALK P 161 U/L 45-117 H ML COMPREHENSIVE M ALT 34 U/L 13-56 ML COMPREHENSIVE M T BILI 0.20 mg/dL 0.20-1.00 ML For patients on eltrombopag therapy, use of Dimension [place] TBIL is not recommended. COMPREHENSIVE M NA 138 mmol/L 136-145 ML COMPREHENSIVE M POTASSIUM 4.0 mmol/L 3.5-5.1 ML COMPREHENSIVE M CL 106 mmol/L 98-107 ML COMPREHENSIVE M CO2 25.0 mmol/L 21.0-32.0 ML COMPREHENSIVE M GAP 7 5-15 ML PROTEIN+CREATIN NOTE POLO PROTEIN+CREATIN UR CREAT 51.00 mg/dL NO RANGE EST. ML PROTEIN+CREATIN PROTEIN,UR.RAN. 58.6 mg/dL <11.9 H ML PROTEIN+CREATIN PROT:CRE RATIO 1149 mg/g CRE 0-200 H ML CBC W/DIFF, AUT NOTE POLO CBC W/DIFF, AUT WBC 9.8 K/mm3 4.4-11.0 ML CBC W/DIFF, AUT RBC 4.09 M/mm3 4.2-5.4 L ML CBC W/DIFF, AUT HGB 9.0 g/dL 12.0-15.0 L ML CBC W/DIFF, AUT HCT 30.4 37-47 L ML CBC W/DIFF, AUT MCV 74.3 fL 81-99 L ML CBC W/DIFF, AUT MCH 22.0 pg 27.0-32.0 L ML CBC W/DIFF, AUT MCHC 29.6 g/dL 32-36 L ML CBC W/DIFF, AUT RDW CV 15.6 11.6-14.6 H ML CBC W/DIFF, AUT RDW SD 42.1 fl 35.1-43.9 ML CBC W/DIFF, AUT PLT 297 K/mm3 150-450 ML CBC W/DIFF, AUT MPV 9.5 fl 6.2-12.0 ML CBC W/DIFF, AUT NEUT% 67.0 47-70 ML CBC W/DIFF, AUT LY% 21.7 19-41 ML CBC W/DIFF, AUT MONO% 6.1 0-10 ML CBC W/DIFF, AUT EO% 4.0 0-5 ML CBC W/DIFF, AUT BASO% 0.3 0-1 ML CBC W/DIFF, AUT IG% 0.900 0.0-0.9 ML IG% - Immature Granulocytes (promyelocytes, myelocytes and metamyelocytes) > 1% indicates that a LEFT SHIFT is Present. CBC W/DIFF, AUT ABSOLUTE NEUT 6.6 X10 3/uL 2.0-7.7 ML CBC W/DIFF, AUT ABSOLUTE LYMPH 2.12 X10 3/uL 0.83-4.51 ML CBC W/DIFF, AUT NUCLEATED RBC 0.7 0-5 ML URINALYSIS, COM NOTE POLO URINALYSIS, COM WBC 0-5 SEEN /hpf 0-5 ML URINALYSIS, COM RBC 0 SEEN /hpf 0-5 ML URINALYSIS, COM EPI,SQUAMOUS 0-5 SEEN /hpf 5-10 ML URINALYSIS, COM BACTERIA RARE /hpf None Seen ML URINALYSIS, COM MUCUS 0 SEEN /hpf <or=2+ ML GLUCOSE CHALLEN NOTE POLO GLUCOSE CHALLEN GLU GEST 50G 1H 171 mg/dL 70-140 H ML CBC-COMPLETE BL NOTE POLO CBC-COMPLETE BL WBC 11.3 K/mm3 4.4-11.0 H ML CBC-COMPLETE BL RBC 3.95 M/mm3 4.2-5.4 L ML CBC-COMPLETE BL HGB 10.5 g/dL 12.0-15.0 L ML CBC-COMPLETE BL HCT 33.8 % 37-47 L ML CBC-COMPLETE BL MCV 85.6 fL 81-99 ML CBC-COMPLETE BL MCH 26.6 pg 27.0-32.0 L ML CBC-COMPLETE BL MCHC 31.1 g/dL 32-36 L ML CBC-COMPLETE BL RDW CV 12.6 % 11.6-14.6 ML CBC-COMPLETE BL RDW SD 38.7 fl 35.1-43.9 ML CBC-COMPLETE BL PLT 334 K/mm3 150-450 ML CBC-COMPLETE BL MPV 9.4 fl 6.2-12.0 ML GLUCOSE CHALLEN NOTE POLO GLUCOSE CHALLEN GLU GEST 50G 1H 125 mg/dL 70-140 ML Initial OB Labs Blood Type O Initial OB Labs Rh Type POS Initial OB Labs Antibody Screen NEGATIVE Negative Initial OB Labs Hemoglobin Initial OB 13.4 Initial OB Labs Hematocrit Initial OB 40.6 Initial OB Labs PLT 359 Initial OB Labs Rubella IMMUNE Immune Initial OB Labs VDRL NON-REACTIVE Non Reactive Initial OB Labs HBsAg NEGATIVE Negative Initial OB Labs HIV Test NEGATIVE Negative HEP C ANTIBODY NEGATIVE Initial OB Labs Urine Protein 15 Negative Initial OB Labs Urine Glucose NEG Negative PAP IG W/REFLEX NOTE POLO PAP IG W/REFLEX DIAGN Comment . LC NEGATIVE FOR INTRAEPITHELIAL LESION OR MALIGNANCY. PAP IG W/REFLEX ADEQ Comment . LC Satisfactory for evaluation. Endocervical and/or squamous metaplastic cells (endocervical component) are present. PAP IG W/REFLEX PERFORM Comment . FELY Lomas Plumber Cub (ASCP) PAP IG W/REFLEX TEST METHOD Comment . LC This liquid based ThinPrep(R) pap test was screened with the use of an image guided system. PAP IG W/REFLEX COMM . . PAP IG W/REFLEX PAPSMR Comment . LC The Pap smear is a screening test designed to aid in the detection of premalignant and malignant conditions of the uterine cervix. It is not a diagnostic procedure and should not be used as the sole means of detecting cervical cancer. Both false-positive and false-negative reports do occur. PAP IG W/REFLEX HPV RFLX Comment . LC The HPV DNA reflex criteria were not met with this specimen result therefore, no HPV testing was performed. Performed at: - [facility] [address] [id number] Fingernail Sculptor: Luz Britt MD, Phone: [phone] CHLAMYDIA/GC NA NOTE POLO CHLAMYDIA/GC NA CHLAMY,NUC ACID Negative Negative LC CHLAMYDIA/GC NA GC BY NUC ACID Negative Negative LC Performed at: - [facility] [id number] Fingernail Sculptor: Luz Britt MD, Phone: [phone] == ==== Impression /Plan: 35 wks + 3 days intrauterine twin with mono-di placentation, GDMA2, gestational HTN, and proteinuria. Plan Primary LTCCS. Preparations in progress for delivery.
[2020-08-18] VITALS (26 sets, daily range): BP systolic 117–150; BP diastolic 66–92; PULSE 64–88; RESP 15–18; TEMP 36.1–36.6; O2SAT 93–96; BMI 47.6
[2020-08-18] MEDS: Lactated Ringers 1,000 ML 999 ML IV (05:25)
[2020-08-18 05:36] LABS: Absolute Lymphocyte Count 1.95 X10^3/uL (0.83-4.51); Basophil# 0.06 X10^3/uL; Basophil% 0.5 % (0-1); Eosinophil# 0.13 X10^3/uL; Eosinophils% 1.1 % (0-5); Hemoglobin 8.1 g/dL (12.0-15.0); Lymphocyte # 1.95 X10^3/ul (4.0); Lymphocyte % 16.9 % (19-41); Mean Corpuscular Hgb 22.1 pg (27.0-32.0); Mean Corpuscular Volume 73.8 fL (81-99); Mean Platelet Vol. 9.7 fl (6.2-12.0); Monocyte# 0.95 X10^3/uL; Monocyte% 8.3 % (0-10); NRBC Flagged by Analyzer 2.3 % (0-5); Neutrophil # 7.99 X10^3/uL (2.7-7.7); Neutrophil % 69.5 % (47-70); Platelet Count 283 K/mm3 (150-450); RBC Distribution Width SD 42.3 fl (35.1-43.9); Red Blood Count 3.66 M/mm3 (4.2-5.4); White Blood Count 11.5 K/mm3 (4.4-11.0)
[2020-08-18 05:46] LABS: Bedside Glucose 92 mg/dL (70-110)
[2020-08-18] MEDS: Lactated Ringers 1,000 ML 150 ML IV (06:26)
[2020-08-18] MEDS: Acetaminophen 500 MG Tablet 1000 MG PO ×3 (06:30→18:33)
[2020-08-18] MEDS: Sodium Citrate/Citric Acid 30 ML UDC PO (07:21)
[2020-08-18] MEDS: Cefazolin 2 GM in 0.9% Normal Saline 100 ML IV (07:30)
--- NOTE | 2020-08-18 08:35 | OP.PCM_ITS ---
Delivery Classification: Scheduled Final SAMANTHA: 09/18/20 Final SAMANTHA Source: US <20 weeks Gestational age: 35 Weeks and 4 Days doctor who attended delivery (if requested by OB): Ligia Silva - Twins 35 weeks operating engineer: Jaswinder Lopez Type of Anesthesia:: Spinal - With Duramorph Date of Procedure: 08/18/20 Pre-Operative Diagnosis: Twin Intrauterine with Monochorionic/Dichorionic Placentation, Chronic Hypertension, Gestational Diabetes Type A2, Breech Presentation, Proteinuria Post-Operative Diagnosis: Twin Intrauterine with Monochorionic/Dichorionic Placentation, Chronic Hypertension, Gestational Diabetes Type A2, Breech Presentation, Proteinuria Indications for : Breech Description of Procedure: Surgeon: Jerry Renee MD, FACOG Anesthesia: Reed Jennings MD Procedure: Primary Low Transverse Cervical Caesarean Section Findings: Baby A: Viable female with Apgars of 8/9 in complete breech presentation with clear amniotic fluid and normal three-vessel placenta and cord around the neck x2 tight; Baby B: Viable female with Apgars of 9/9 in occiput anterior presentation with clear amniotic fluid and normal three-vessel placenta Indication: This is a 30-year-old who presents for her first at 35+ weeks gestation. care has been eventful for twin gestation with mono- di placentation. She also has chronic hypertension treated with labetalol and she developed gestational diabetes type A2 during the . Baby A is in breech presentation. The patient has been counseled regarding the risk and indications of this procedure including the possibility of bleeding infection and injury to surrounding structures such as bowel bladder. All questions were answered. Procedure: Patient was taken to the operating room where after spinal anesthesia was placed, the patient was prepped and draped in usual sterile fashion and a Hernandez catheter was placed. The abdomen was entered through a Pfannenstiel incision and peritoneum was entered bluntly. After developing a bladder flap on the lower uterine segment a low transverse incision was made on the uterus and breech was easily delivered onto the operative field the nose mouth and oropharynx were bulb suctioned. Subsequently a viable female infant was born with Apgars of 8/9. The was noted to cry move all extremities vigorously on the operative field. The umbilical cord was doubly clamped and ligated and handed to the nursery personnel who were present for the delivery. Similarly, baby B was delivered and was a viable female with Apgars of 8/9 in occiput anterior presentation. Placenta was delivered and noted to be 3 vessels and normal. Uterus was exteriorized and remaining placental tissue was removed. The uterus was then closed in 2 layers first with running locked 0 Vicryl suture followed by a second imbricating layer with 0 Vicryl suture. 0 Vicryl suture was then used in a horizontal mattress interrupted fashion to affect final hemostasis of the uterine incision line. Normal fallopian tubes and ovaries were visualized and the uterus was returned to the pelvis. Hemostasis was noted and rectus abdominis muscles were reapproximated in the midline with interrupted Number 0 Vicryl suture in a horizontal mattress fashion. Fascia was closed with running Number 1 PDS Strata fix suture. Subcutaneous tissue was irrigated with copious amounts of saline solution and then closed with running 3-0 Vicryl suture. Skin was closed with 4-0 monocryl suture in a running subcuticular fashion. Steri strips and a Mepilex dressing were placed across the incision. The patient tolerated the procedure well and was taken to the recovery room in satisfactory condition. Sponge, needle, and instrument counts were all reportedly correct. EBL was 750 cc. Ancef 2 gms IV was given prior to the procedure. Spicemen to Pathology: Twin placenta Complications: None Amniotic Fluid Description: Clear Placenta Disposition: Routine to Lab Specimen(s) sent to pathology: Twin placenta Drain: Hernandez to straight drain Fluids Replaced: Crystalloid Cord Entanglement: Around neck x 2, tight Cord Vessel Description: 3 Vessels Esitmated Blood Loss (ml): 750 cc Infant Gender: Female Antibiotic Given: Ancef 2 grams IV x1 Pt instructed on risks of surgery: Bleeding, Infection, Injury to surrounding structure(s) including bowel and bladder Complications: None - Admit VTE Documentation VTE Present on Admission: Yes VTE Mechan Device Prophylaxis: SCD's VTE Pharm Prophylaxis ordered?: Yes
[2020-08-18] MEDS: Oxytocin 30 units/NS 500 ml 30 UNITS/500 ML IV.SOLN 250 UNITS IV (08:45)
--- NOTE | 2020-08-18 08:54 | DCINST_ITS ---
Discharge Diet: No Restrictions Discharge Activity: May not drive while taking narcotic pain medications., May Shower, May Take a Tub Bath May resume sexual activity in: 4-6 weeks Lifting Restrictions: 20 pounds Additional Activity Instructions:: Nothing in the vagina for 4-6 weeks. You may return to work/school in 6 weeks. Call your doctor if your incision/area has: Continuous Slow Oozing, Sudden Increased Bleeding, Increased Pain/ Swelling, Increased Redness, Foul Smelling Discharge Call your doctor if you observe: Fever of 101 or Higher, Inability to urinate, Inability to have a bowel movement, Using more than one pad per hour Additional Instructions: If you experience any of the following, contact your healthcare provider. * Bleeding that soaks a pad every hour for 2 hours * Fever 100.4 or higher * Unrelieved incision or abdominal pain * Swelling, redness, discharge or bleeding from your incision or episiotomy site * Your incision begins to separate * Problems urinating (including inability to urinate or burning while urinating). * Visual changes * Severe headache * Flu-like symptoms * Pain or redness in one of both of your breasts * Pain, warmth, tenderness or swelling in your legs, especially the calf area * Frequent nausea and vomiting * Symptoms of depression or anxiety If you experience any of the following, call 911 or go to the nearest Emergency Room. * Chest pain * Problems breathing * Seizure activity * Partial or complete paralysis of a body part, slurred speech, weakness or drooping of the face, or a sudden inability to walk or hold your balance Allergies/Adverse Reactions: Allergies No Known Allergies Allergy (Verified 08/18/20 06:40) Medications to take at Discharge Vits [Prenatabs FA] 1 tab PO DAILY 07/22/20 Docusate Sodium [Colace] 100 mg PO BID PRN PRN #60 cap 08/18/20 Oxycodone [Oxyir] 5 mg PO Q6H PRN PRN 7 Days #14 tab 08/18/20 The following prescriptions were given: Docusate Sodium [Colace] 100 mg PO BID PRN PRN #60 cap PRN Reason: Constipation Transmission Status: Received by [id number] Oxycodone [Oxyir] 5 mg PO Q6H PRN PRN 7 Days #14 tab PRN Reason: Pain Score 6-10 Transmission Status[id number] Follow-Up: Call to make an appointment with your doctor for an incision check in 1-2 weeks. You will also need a 6 week post- follow up appointment. Test results from this visit will be discussed in further detail at your follow- up appointment, if applicable. Please Follow Up With: Jerry Renee MD - [phone] When: Call to make an appointment for an incision check in 2 weeks. Primary Care Physician: Jerry Rosario MD [Primary Care Provider] -
--- NOTE | 2020-08-18 08:58 | PLAC_PTH ---
PATIENT: JERSON BOOTH LOC: [facility] U#:[id number] AGE/SX: 30/F [facility] [place] [facility]: Dr. Jerry Renee MD : 1990 BED: 1 DIS: 08/20/2020 SPEC #: [id number] RECD: 08/18/20 09:37 STATUS: ARNOLDO REStephen #: [id number] MATTEO: 08/18/20 08:[address]: Jerry Renee DEPT: SURGICAL PATHOLOGY RECD BY: Venus Mancia ENTERED: 08/18/20 09:52 SP TYPE: PLACENTA OTHR DR: Dr. Jerry Rosario MD Tissues: Placenta, NOS Procedures: Surgery Specimen Level V HEADER OPERATION: Primary section PRE-OP DIAGNOSIS: Twins TISSUE SUBMITTED: Placenta MICROSCOPIC DIAGNOSIS Monochorionic diamniotic twin placenta (780 gm): Placental side A Umbilical cord - trivascular with no inflammation. Peripheral membranes - no pathologic change. Placental disc - intravillous congestion, intervillous congestion and mild Raul-Baldev change. Placental side B Umbilical cord - trivascular with no inflammation. Peripheral membranes - no pathologic change. Placental disc - intravillous congestion, intervillous congestion and Raul-Baldev change. AM:jenny 08/20/2020 MICROSCOPIC DESCRIPTION Slides are reviewed. GROSS DESCRIPTION SPECIMEN: TWIN PLACENTA / CLINICAL INFORMATION: A. Weight: A - 2.3 kg; B - 2.815 kg B. Gestational Age: 35 weeks C. Sex: A - Female, B - Female PLACENTAL WEIGHT (POST FIXATION): 780 gm PLACENTAL DIMENSIONS: 22 x 18 x 3 cm PLACENTAL SHAPE: Usual ovoid PLACENTAL WEIGHT FOR GESTATIONAL AGE: Within 10-99th percentile PLACENTA A: (with clamp) MEMBRANES - Present A. Insertion: Marginal B. Site of rupture from edge: 0 cm from edge of placental disc C. Color of membrane: Lopez-merida D. Abnormalities: None UMBILICAL CORD - Present A. Color: Lopez-merida B. Insertion: Eccentric C. Length: 35 cm D. Diameter: 1 cm E. Number of vessels: Three F. Abnormalities: None PLACENTA B: MEMBRANES - Present A. Insertion: Marginal B. Site of rupture from edge: 0 cm from edge of placental disc C. Color of membrane: Lopez-merida D. Abnormalities: None UMBILICAL CORD - Present A. Color: Lopez-merida B. Insertion: Near central C. Length: 31 cm D. Diameter: 1.2 cm E. Number of vessels: Three F. Abnormalities: None PLACENTAL DISC - Present A. Color of surface: Lopez-merida B. surface abnormalities: None C. Maternal cotyledons: Intact with minimal tears D. Attached retro placental clot: No clot E. Cut surface: Dark red and spongy F. Lesions: None G. Separate clot: Absent SECTIONS SUBMITTED: 11 cassettes 1. Dividing membrane 2. Umbilical cord designated A 3. Umbilical cord designated B 4. Peripheral membranes designated A 5. Peripheral membranes designated B 6-8. Placental disc, side designated A 9-11. Placental disc, side designated B AM:jenny 08/19/20 TC:5 CPT: 79764 x2
[2020-08-18 09:38] LABS: Pathology Specimen OB SEE PATHOLOGY REPORT
[2020-08-18 10:16] LABS: Bedside Glucose 104 mg/dL (70-110)
[2020-08-18] MEDS: Oxytocin 30 units/NS 500 ml 30 UNITS/500 ML IV.SOLN 167 UNITS IV (10:50)
[2020-08-18] MEDS: Ketorolac 30 MG/ML Syringe IV ×2 (13:22→18:33)
[2020-08-18] MEDS: Labetalol 100 MG Tablet PO ×2 (14:30→22:18)
[2020-08-18] MEDS: Lactated Ringers 1,000 ML 100 ML IV (14:46)
[2020-08-18] MEDS: Cefazolin 1 GM/50 ML BAG IV (17:14)
[2020-08-18] MEDS: Ondansetron 4 MG/2 ML Vial IV (17:17)
[2020-08-18] MEDS: Enoxaparin 40 MG/0.4 ML Syringe SC (22:18)
[2020-08-19 00:50] VITALS: BP 105/53; PULSE 81; RESP 16; O2SAT 94
[2020-08-19] MEDS: Acetaminophen 500 MG Tablet 1000 MG PO ×4 (00:58→19:13)
--- NOTE | 2020-08-19 01:57 | NURSING ---
0025- Pt. up to restroom. Voided, but missed hat. Pt. reports feeling like her bladder was emptied completely. This RN explained we will try to measure the next void.
[2020-08-19] MEDS: Ibuprofen 600 MG Tablet PO ×4 (02:05→20:10)
[2020-08-19 03:15] VITALS: PULSE 80; RESP 16; O2SAT 95
[2020-08-19 06:00] VITALS: BP 130/73; PULSE 88; RESP 18; O2SAT 95
[2020-08-19 06:00] LABS: Hematocrit 26.1 % (37-47); Hemoglobin 7.8 g/dL (12.0-15.0); Mean Corp Hgb Conc 29.9 g/dL (32-36); Mean Corpuscular Hgb 22.2 pg (27.0-32.0); Mean Corpuscular Volume 74.1 fL (81-99); Mean Platelet Vol. 9.9 fl (6.2-12.0); Platelet Count 294 K/mm3 (150-450); RBC Distribution Width CV 16.4 % (11.6-14.6); RBC Distribution Width SD 43.5 fl (35.1-43.9); Red Blood Count 3.52 M/mm3 (4.2-5.4); White Blood Count 15.7 K/mm3 (4.4-11.0)
--- NOTE | 2020-08-19 08:13 | NURSING ---
Pt. up and voiding. Has had at least four voids since castro came out.
[2020-08-19 08:39] VITALS: BP 140/83; PULSE 72; RESP 18; TEMP 36.4; O2SAT 95
--- NOTE | 2020-08-19 09:42 | PCM.PN.OB ---
Subjective: Patient without complaints. Tolerating diet well. Denies flatus. Minimal vaginal bleeding reported. Objective: Wound is clean, dry, intact covered with Mepilex dressing. Good urine output. Hemoglobin stable. - Physical Exam Vitals/I&O's: Vital Signs Temp Pulse Resp BP Pulse Ox 97.5 F L 72 18 140/83 H 95 08/19/20 08:39 08/19/20 08:39 08/19/20 08:39 08/19/20 08:39 08/19/20 08:39 Oxygen Delivery Method Room Air Weight: 260 lb 6.4 oz Body Mass Index (BMI) 47.6 Intake and Output for Last 24 Hours 08/17/20 08/18/20 08/19/20 23:59 23:59 23:59 Intake Total 2512.5 / 2512.5 965 / 965 Output Total 250 / 250 Balance 2262.5 / 2262.5 965 / 965 Microbiology Past 72 Hours 08/18/20 05:50 Mucosa - Nose SARS-CoV-2 Antigen (Rapid) - Final Laboratory Results 08/18/20 09:53: POC Glucose 104 08/19/20 05:55: WBC 15.7 H, RBC 3.52 L, Hgb 7.8 L, Hct 26.1 L, MCV 74.1 L, MCH 22.2 L, MCHC 29.9 L, RDW Std Deviation 43.5, RDW Coeff of Mehran 16.4 H, Plt Count 294, MPV 9.9 Current Medications Acetaminophen (Acetaminophen 500 Mg Tablet) 1,000 mg PO Q6 [facility] Last Admin: 08/19/20 06:31 Dose: 1,000 mg Documented by: Bisacodyl (Bisacodyl 10 Mg Suppository) 10 mg RECTAL UD PRN PRN Reason: If no BM Enoxaparin Sodium (Enoxaparin 40 Mg/0.4 Ml Syringe) 40 mg SC DAILY [facility] Last Admin: 08/18/20 22:18 Dose: 40 mg Documented by: Hydrocortisone (Hydrocortisone 2.5% Crm) 1 applic TOPICAL TID PRN PRN; Protocol PRN Reason: Discomfort Ibuprofen (Ibuprofen 600 Mg Tablet) 600 mg PO Q6H [facility] Last Admin: 08/19/20 08:19 Dose: 600 mg Documented by: Labetalol HCl (Labetalol 100 Mg Tablet) 100 mg PO BID [facility] Last Admin: 08/18/20 22:18 Dose: 100 mg Documented by: Methylergonovine Maleate (Methylergonovine 0.2 Mg/Ml Ampul) 0.2 mg IM X1 PRN PRN Reason: Uterine Atony Ondansetron HCl (Ondansetron 4 Mg/2 Ml Vial) 4 mg IV Q4H PRN PRN PRN Reason: Nausea Last Admin: 08/18/20 17:17 Dose: 4 mg Documented by: Oxycodone HCl (Oxycodone 5 Mg Tablet) 5 - 10 mg PO Q4H PRN PRN PRN Reason: Pain Score 4-10 Prochlorperazine Edisylate (Prochlorperazine 10 Mg/2 Ml Vial) 10 mg IV Q6H PRN PRN PRN Reason: NAUSEA Senna/Docusate Sodium (Senna/Docusate Sodium 1 Tablet) 0 tablet PO DAILY [facility] Last Admin: 08/18/20 10:57 Dose: Not Given Documented by: Simethicone (Simethicone 80 Mg Tablet) 80 mg PO PCHS PRN PRN Reason: Indigestion/stomach pain Sodium Chloride (0.9% Saline Lock 10 Ml Syringe) 5 - 15 ml IV UD PRN PRN Reason: SALINE FLUSH Medical Necessity - Tobacco Use Smoking Status: Never smoker Assessment/Plan Doing well postoperative day #1 status post section. Continuing present care.
[2020-08-19] MEDS: Labetalol 100 MG Tablet PO ×2 (10:20→21:39)
[2020-08-19] MEDS: Enoxaparin 40 MG/0.4 ML Syringe SC (10:21)
[2020-08-19] MEDS: Senna/Docusate Sodium 1 Tablet PO (10:21)
[2020-08-19 13:17] VITALS: BP 137/66; PULSE 80; RESP 18; TEMP 36.6; O2SAT 95
[2020-08-19 20:11] VITALS: BP 141/76; PULSE 84; RESP 16; TEMP 36.2
[2020-08-19] MEDS: oxyCODONE 5 MG Tablet PO (21:27)
[2020-08-20 00:35] LABS: Bedside Glucose 105 mg/dL (70-110)
[2020-08-20 01:01] VITALS: BP 144/71; PULSE 81; RESP 14; TEMP 36.6
[2020-08-20] MEDS: Acetaminophen 500 MG Tablet 1000 MG PO ×2 (01:06→06:47)
[2020-08-20] MEDS: Ibuprofen 600 MG Tablet PO ×2 (02:23→08:00)
[2020-08-20] MEDS: oxyCODONE 5 MG Tablet PO (06:49)
[2020-08-20 08:04] VITALS: BP 156/84; PULSE 74; RESP 16; TEMP 36.5; O2SAT 98
--- NOTE | 2020-08-20 08:38 | PCM.PN.OB ---
Subjective: Patient without complaints. Tolerating diet well. Positive flatus. Ready to go home. Denies any PIH symptoms. Objective: Wound is clean, dry, intact with Mepilex dressing in place. Blood pressure is mildly elevated intermittently - Physical Exam Vitals/I&O's: Vital Signs Temp Pulse Resp BP Pulse Ox 97.7 F L 74 16 156/84 H 98 08/20/20 08:04 08/20/20 08:04 08/20/20 08:04 08/20/20 08:04 08/20/20 08:04 Oxygen Delivery Method Room Air Weight: 260 lb 6.4 oz Body Mass Index (BMI) 47.6 Intake and Output for Last 24 Hours 08/18/20 08/19/20 08/20/20 23:59 23:59 23:59 Intake Total 2512.5 / 2512.5 965 / 965 Output Total 250 / 250 Balance 2262.5 / 2262.5 965 / 965 Microbiology Past 72 Hours 08/18/20 05:50 Mucosa - Nose SARS-CoV-2 Antigen (Rapid) - Final Laboratory Results 08/19/20 08:25: POC Glucose 105 Current Medications Acetaminophen (Acetaminophen 500 Mg Tablet) 1,000 mg PO Q6 [facility] Last Admin: 08/20/20 06:47 Dose: 1,000 mg Documented by: Bisacodyl (Bisacodyl 10 Mg Suppository) 10 mg RECTAL UD PRN PRN Reason: If no BM Enoxaparin Sodium (Enoxaparin 40 Mg/0.4 Ml Syringe) 40 mg SC DAILY [facility] Last Admin: 08/19/20 10:21 Dose: 40 mg Documented by: Hydrocortisone (Hydrocortisone 2.5% Crm) 1 applic TOPICAL TID PRN PRN; Protocol PRN Reason: Discomfort Ibuprofen (Ibuprofen 600 Mg Tablet) 600 mg PO Q6H [facility] Last Admin: 08/20/20 08:00 Dose: 600 mg Documented by: Labetalol HCl (Labetalol 100 Mg Tablet) 100 mg PO BID [facility] Last Admin: 08/19/20 21:39 Dose: 100 mg Documented by: Methylergonovine Maleate (Methylergonovine 0.2 Mg/Ml Ampul) 0.2 mg IM X1 PRN PRN Reason: Uterine Atony Ondansetron HCl (Ondansetron 4 Mg/2 Ml Vial) 4 mg IV Q4H PRN PRN PRN Reason: Nausea Last Admin: 08/18/20 17:17 Dose: 4 mg Documented by: Oxycodone HCl (Oxycodone 5 Mg Tablet) 5 - 10 mg PO Q4H PRN PRN PRN Reason: Pain Score 4-10 Last Admin: 08/20/20 06:49 Dose: 5 mg Documented by: Prochlorperazine Edisylate (Prochlorperazine 10 Mg/2 Ml Vial) 10 mg IV Q6H PRN PRN PRN Reason: NAUSEA Senna/Docusate Sodium (Senna/Docusate Sodium 1 Tablet) 0 tablet PO DAILY [facility] Last Admin: 08/19/20 10:21 Dose: 1 tablet Documented by: Simethicone (Simethicone 80 Mg Tablet) 80 mg PO PCHS PRN PRN Reason: Indigestion/stomach pain Last Admin: 08/19/20 13:14 Dose: 80 mg Documented by: Sodium Chloride (0.9% Saline Lock 10 Ml Syringe) 5 - 15 ml IV UD PRN PRN Reason: SALINE FLUSH Medical Necessity - Tobacco Use Smoking Status: Never smoker Assessment/Plan Doing well post operative day #2 status post section. Will discharge to home with routine instructions. Patient has labetalol at home so we will restart at half dose for 2 to 3 weeks which is labetalol 100 mg twice daily.
--- NOTE | 2020-08-20 09:06 | NURSING ---
Phone call to office to report pt BP. Office nurse, Diane, to report to MD and verify ok for discharge.
--- NOTE | 2020-08-20 09:11 | NURSING ---
Called received from office. Ok to discharge pt as ordered. Pt. to continue labetolol and follow up in office 1-2 weeks.
[2020-08-20] MEDS: Senna/Docusate Sodium 1 Tablet PO (09:43)
[2020-08-20] MEDS: Labetalol 100 MG Tablet PO (09:43)
[2020-08-20] MEDS: Enoxaparin 40 MG/0.4 ML Syringe SC (09:44)
[2020-08-20 09:45] VITALS: BP 130/82
--- NOTE | 2020-08-20 11:51 | NURSING ---
This nurse reviewed the documentation completed by Sigrid Hodge student nurse LINN and was present for all medication administrations.
== END 2020-08-20 12:30 | disposition home or self-care (01) | DRG 786 ==
PROVIDERS: Admitting Provider Obstetrics & Gynecology; PCP Family Medicine; Referring Provider Obstetrics & Gynecology; Visit Provider Obstetrics & Gynecology
PROC: 10D00Z1 Extraction of Products of Conception, Low, Open Approach (ICD-10-PCS; CPT 59514; principal; 2020-08-18 07:15)
DX: O30.033 Twin pregnancy, monochorionic/diamniotic, third trimester (principal); O60.14X1 Preterm labor third trimester with preterm delivery third trimester, fetus 1; O60.14X2 Preterm labor third trimester with preterm delivery third trimester, fetus 2; O10.92 Unspecified pre-existing hypertension complicating childbirth; O32.1XX1 Maternal care for breech presentation, fetus 1; O32.1XX2 Maternal care for breech presentation, fetus 2; O24.425 Gestational diabetes mellitus in childbirth, controlled by oral hypoglycemic drugs; O26.23 Pregnancy care for patient with recurrent pregnancy loss, third trimester; O69.1XX1 Labor and delivery complicated by cord around neck, with compression, fetus 1; Z3A.35 35 weeks gestation of pregnancy; Z37.2 Twins, both liveborn; Z79.82 Long term (current) use of aspirin
CPT/HCPCS: 82962; 85025; 85027; 86850; 86900; 86901; 87426; 88307; 99218; J7120; G0378; J2405